=== PATIENT | female | born 1990 | race Caucasian/White ===

== ENCOUNTER → 2017-08-11 18:45 | Observation (INO) ==
--- NOTE | 2017-08-11 18:28 | OB/GYN Progress Note ---
Date of Encounter: 08/12/17 Time of Encounter: 18:24 - Assessment and Plan (1) 38 weeks gestation of Status: Chronic Patient monitored on Rodessa and EFM for 2 hours. Cat 1 tracings, HR 150's Cervical Exam: Monday Today at 1600: 4/80, posterior cervix Today at 1800: 4/80, posterior cervix No change in cervical exam with reassuring NST. Patient discharged home and will return if needed for eval with increased contractions, leaking fluid, etc. Subjective - Subjective Principal diagnosis: labor eval Interval history: Ms. Tarango is a 27 y/o female at 38 5/7 weeks gestation who presents to L&D for labor eval. She states that she has been feeling contractions irregularly since monday. She was seen in the office Monday and was . She states that her contractions have increased in regularity today. They were about 10 minutes apart and then 3-4 minutes apart when she was exercising. She states that they are currently about every 5 minutes. She notes no vaginal bleeding, fluid leak or discharge. She has positive movement. She states that her current has not been complicated and neither were her 2 prior pregnancies. She did have one miscarriage. She also notes that with her last delivery she had retained placenta and required an emergent D&C. Denies f/c, GRIFFIN, dizziness, cp, sob, n/v/d, rashes, weakness. Antepartum ROS: movement normal, contractions, no loss of fluid, no vaginal bleeding Objective - Vital Signs Vital Signs: Intake and Output 08/11/17 08/11/17 08/11/17 07:59 15:59 23:59 Other: Weight 87 kg Patient Weight 08/11/17 23:59 Weight 87 kg - Exam FHR: auscultation normal, category 1 Auscultation: bilateral: normal Abdomen: Present: normal appearance, soft, gravid. Absent: tenderness Uterus: Present: normal, firm Cervical dilation: 4 Cervix effacement: 80 Comments: cervix posterior - Allied health notes Allied health notes reviewed: nursing
[~2017-08-11 18:45] MED LIST: FLUARIX QUAD 2017-18 36MOS UP/PF 0.5 ML SYRINGE IM ONE
== END | disposition home or self-care (01) ==
LOC: 1NENULAB
PROVIDERS: ADMIT Obstetrics & Gynecology; ATTEND Obstetrics & Gynecology

== ENCOUNTER 2017-08-12 02:28 | Inpatient (IN) ==
--- NOTE | 2017-08-12 01:12 | OB/GYN History & Physical ---
Date of Encounter: 08/12/17 Time of Encounter: 01:08 Assessment and Plan (1) 39 weeks gestation of Current visit: Yes Status: Acute (2) Uterine contractions during Current visit: Yes Status: Acute Discussed case with Dr. Smith, who states dating should be done based on first trimester ultrasound showing 10/20. Patient has been having contractions without cervical change however given the patient's distance from the hospital of an hour away and a history of retained placenta with immediate hemorrhage decision made to proceed with induction of labor. Admit to labor and delivery Nubain and epidural as desired GBS negative Pitocin induction per policy Anticipate History of Present Illness Chief complaint: contractions HPI: Ms. Tarango is a 27 year old female at 39+1 weeks' gestation. Initial review of records showed NANCY of 10 however patient states that she was always told her NANCY was 10/20. upon review of initial suppress menses visit as an NANCY was calculated based on first trimester ultrasound which showed NANCY of of 10/20. Patient complains of contractions consistently since this afternoon, was discharged to home but patient returned with stronger contractions this evening. Reports good movement, denies vaginal bleeding or leaking of fluid. Uncomplicated course, however last did have a D&C due to retained placenta and hemorrhage. Labs: O+, rubella immune GBS negative, all other serologies negative Past Med Surg Social Fam HX - Past Medical History Medical history: no medical history Psychiatric history: no psych history - Social History Smoking Status: Never smoker Alcohol use: none Drug use: none - Family History Mother Adopted: No Living Status: Still Living Hx Family Cardiac Disorders: Yes (HTn) Hx Family Respiratory Disorders: No Hx Family Cancer: No Hx Family GI Disorders: No Hx Family Endocrine Disorder: No Hx Family Neuromuscular Disorders: No Hx Family Neurologic Disorders: No Hx Family HEENT Disorders: No Hx Family Autoimmune Disorders: No Obstetrical History - Pregnancies : 4 Para: 2 Term: 2 : 0 Ab's: 1 Livin Medications and Allergies Vit Calc,Iron,Folic [ Vitamins] 1 tab PO DAILY 08/11/17 [ History] 3 Allergy/AdvReac Type Severity Reaction Status Date / Time No Known Allergies Allergy Verified 08/11/17 22:22 Exam - Constitutional Constitutional: well developed, well nourished, no acute distress, average body habitus - Neck Neck exam: full ROM - Lungs Respiratory exam: CTAB - Cardiovascular Cardiovascular exam: RRR - Abdomen Abdomen: Present: bowel sounds normal, gravid, non tender - Vagina Vagina: Present: normal moisture - Cervix Dilation: 4 Effacement: 80 Station: -2 - Uterus Uterus exam: Present: normal size, normal contour Results All other labs normal. - VTE Reasons for not Prescribing Prophylaxis: Treatment not Indicated - Low risk for VTE
[2017-08-12 02:14] LABS: Basophils % 0.2 %; Eosinophils # 0.1 K/mcL (0.0-0.6); Eosinophils % 0.6 %; Hemoglobin 12.3 g/dL (11.5-15.4); Immature Granulocytes % 0.9 % (0-4); Immature Platelets 5.2 % (1.1-6.1); Lymphocytes # 2.5 K/mcL (0.6-4.6); Lymphocytes % 20.1 %; Mean Corpuscular HGB Conc 34.2 g/dL (31.6-35.5); Mean Corpuscular Hemoglobin 31.5 pg (28.0-33.3); Mean Corpuscular Volume 92.3 fL (83.0-100.0); Mean Platelet Volume 10.6 fL (9.4-12.4); Monocytes % 7.8 %; Neutrophils # 8.7 K/mcL (1.6-8.9); Platelet Count 231 K/mcL (140-400); Red Cell Distribution Width 13.3 % (11.5-14.5); Segmented Neutrophils % 70.4 %
[~2017-08-12 02:28] MED LIST changes: +*HR* Nalbuphine 20 MG/ML AMPUL IVP PRN; -FLUARIX QUAD 2017-18 36MOS UP/PF 0.5 ML SYRINGE IM ONE; +Famotidine 20 MG/2 ML VIAL IVP PRN; +Naloxone 0.4 MG/ML INJ IVP PRN; +Ondansetron 4 MG/2 ML VIAL IVP PRN; +Oxytocin 20 units/ LR 1000 mL 20 UNIT/1,000 ML BAG IVC SCH; +Ringers Solution, Lactated 1,000 ML IVC SCH
--- NOTE | 2017-08-12 09:10 | OB Labor Progress Note ---
Date of Encounter: 08/12/17 Time of Encounter: 09:08 Labor Progress Note - Subjective Subjective: Pt states she continue to feel contractions, but pain is manageable. - Cervix Cervix: 5/90-/0 - Heart Tones Heart Tones: 120/moderate/+accles/-decels - [facility]: 4-8 - Interventions Interventions: Pit turned off at this time due to staffing issues. Will restart when staffing allows - Plan Plan: Restart pitocin as soon as staffing allows. Anticipate .
[2017-08-12] MEDS ORDERED: Ibuprofen 600 MG TABLET PO ONE (14:04)
--- NOTE | 2017-08-12 14:28 | OB/GYN Procedure Note ---
Delivery - Delivery Date: 08/12/17 Provider: Tatyana Ivy Intrapartum events: oligohydramnios Delivery induction: oxytocin Delivery augmentation: rupture of membranes Delivery monitor: external FHT, external uterine Anesthesia: local Estimated Blood Loss: 150 - (s) A Delivery Date: 08/12/17 Delivery Time: 13:48 Presentation: vertex Position: OA Route of delivery: Gender: Male Viability: Viable at 1 minute: 8 at 5 mins: 9 Shoulder Dystocia: not encountered Specimens collected: cord blood Placenta: spontaneous Cord: 3 umbilical vessels - Repair Episiotomy: none Laceration Description: Perineal - 2nd Degree - Complications Delivery complications: none Delivery comments: Induction of labor for history of PPH and lives an hour from hospital. Pitocin inducition progressed to complete. Spontaneous maternal bearing down efforts to of liveborn male, Vertex delivered OA, shoulders and body easily followed, no nuchal cord or shoulder dystocia encountered. placed on maternal abdomen for stimulation. APGARS 8/9. Pitocin started and placenta delivered spontaneously with gentle cord traction. Fundus massaged to firm. Dr. Franco present to assist with placenta delivery. Second degree laceration repaired in the usual fashion. EBL 150. Mother and left bonding in skin to skin and stable. - Disposition Mom disposition: stable in LDR [place] disposition: stable in LDR - Comments Comments: I attended this delivery with above CNM due to patient's history of retained placenta and need for D&C and hemorrhage. The placenta did not immediately release so I assisted with fundal massage and placental retraction. Placenta eventually did spontaneously release followed by 150 mL blood clot. Placenta was inspected and appeared to be intact. There was minimal bleeding following the delivery of the placenta. Usha Franco M.D.
[2017-08-12] MEDS ORDERED: Oxytocin 20 units/ LR 1000 mL 20 UNIT/1,000 ML BAG IVC SCH (17:58)
[2017-08-12] MEDS ORDERED: Acetaminophen 325 MG TABLET PO PRN (17:58)
[2017-08-12] MEDS ORDERED: Rho Immune Globulin 1,500 UNIT SYRINGE IM PRN (17:58)
[2017-08-12] MEDS ORDERED: Measles/Mumps/Rubella Vacc 0.5 ML VIAL SQ PRN (17:58)
[2017-08-12] MEDS: Ibuprofen 600 MG TABLET PO SCH (23:45)
[2017-08-13 06:34] LABS: Basophils % 0.3 %; Eosinophils % 0.3 %; Immature Granulocytes % 0.8 % (0-4); Lymphocytes # 2.8 K/mcL (0.6-4.6); Lymphocytes % 18.5 %; Mean Corpuscular HGB Conc 34.2 g/dL (31.6-35.5); Mean Corpuscular Hemoglobin 31.9 pg (28.0-33.3); Mean Corpuscular Volume 93.4 fL (83.0-100.0); Mean Platelet Volume 10.6 fL (9.4-12.4); Monocytes # 1.1 K/mcL (0.0-1.3); Monocytes % 7.4 %; Neutrophils # 10.8 K/mcL (1.6-8.9); Platelet Count 191 K/mcL (140-400); Red Blood Count 3.32 M/mcL (3.82-4.97); Red Cell Distribution Width 13.4 % (11.5-14.5); Segmented Neutrophils % 72.7 %
[2017-08-13 06:37] LABS: Hemoglobin 10.6 g/dL (11.5-15.4)
[2017-08-13 08:01] VITALS: BP 108/60
[2017-08-13] MEDS ORDERED: Prenatal Vit/FA 1 EACH TABLET PO SCH (09:00)
--- NOTE | 2017-08-13 09:41 | Discharge Summary ---
Date of Encounter: 08/13/17 Time of Encounter: 09:36 - Discharge Diagnosis (1) 39 weeks gestation of Priority: Primary Status: Acute (2) Uterine contractions during Priority: Primary Status: Acute (3) Vaginal delivery Priority: Primary Status: Acute Comments: Pt meeting all milestones. Pain well managed on po pain medication, bottle feeding, desires discharge - Discharge Medications Prescriptions: Ibuprofen [Motrin] 600 mg PO Q6HR #60 tablet Docusate [Colace] 100 mg PO BID #60 capsule Home Medications: Vit Calc,Iron,Folic [ Vitamins] 1 tab PO DAILY 08/11/17 [ History] Acetaminophen [Tylenol] 650 mg PO Q6HR PRN tablet 08/13/17 [Rx] Docusate [Colace] 100 mg PO BID #60 capsule 08/13/17 [Rx] Ibuprofen [Motrin] 600 mg PO Q6HR #60 tablet 08/13/17 [Rx] Vit/FA 1 each PO DAILY tablet 08/13/17 [Rx] Allergies/Adverse Reactions: 3 Allergy/AdvReac Type Severity Reaction Status Date / Time No Known Allergies Allergy Verified 08/11/17 22:22 Data Procedures and tests throughout hospitalization: Laboratory Tests 08/12/17 08/13/17 01:43 05:17 WBC 12.4 H 14.9 H RBC 3.90 3.32 L Hgb 12.3 10.6 L D Hct 36.0 31.0 L MCV 92.3 93.4 MCH 31.5 31.9 MCHC 34.2 34.2 RDW 13.3 13.4 Plt Count 231 191 MPV 10.6 10.6 Immature Gran % 0.9 0.8 Seg Neutrophils % 70.4 72.7 Lymphocytes % 20.1 18.5 Monocytes % 7.8 7.4 Eosinophils % 0.6 0.3 Basophils % 0.2 0.3 Neutrophils # 8.7 10.8 H Lymphocytes # 2.5 2.8 Monocytes # 1.0 1.1 Eosinophils # 0.1 0.0 Basophils # 0.0 0.0 Immature Plt Fraction 5.2 Labs on day of discharge: Labs from last 24 hours 08/13/17 05:17 WBC 14.9 H RBC 3.32 L Hgb 10.6 L D Hct 31.0 L MCV 93.4 MCH 31.9 MCHC 34.2 RDW 13.4 Plt Count 191 MPV 10.6 Immature Gran % 0.8 Seg Neutrophils % 72.7 Lymphocytes % 18.5 Monocytes % 7.4 Eosinophils % 0.3 Basophils % 0.3 Neutrophils # 10.8 H Lymphocytes # 2.8 Monocytes # 1.1 Eosinophils # 0.0 Basophils # 0.0 Date of admission: 08/12/17 02:29 Consults: 08/12/17 17:58 Consult to Plodder Operator [CONS] Routine Comment: Vaginal delivery, consult needed Discharging clinician: Tatyana Ivy Anticipated date of discharge: 08/13/17 - Patient Status Disposition: Home, Self-Care Condition: Good Functional capacity at discharge: independent ambulation - Discharge Instructions Instructions: Ibuprofen (By mouth), Laxative, Stool Softeners (By mouth) Additional Instructions: LABOR AND DELIVERY DISCHARGE INSTRUCTIONS Signs and Symptoms to be Reported to your Doctor Immediately: * Sudden gush, continuous or intermittent lead of fluid from vagina (note the time of gush and color of fluid) * Onset of bright red vaginal bleeding with or without pain (if you had a vaginal exam during this visit you may notice some dark red spotting. This is normal.) * Contractions that are 5 minutes apart (from the beginning of one contraction to the beginning of the next) and last 45-60 seonds; contractions that you can no longer walk, talk or laugh through. * A change in the baby's activity. This could be an increase or decrease in activity. * Severe headache which does not go away with tylenol. * Sudden swelling in the face, hands, arms and/or legs. * Upper abdominal pain - sometimes associated with heartburn or nausea and is not relieved by Maalox, Mylanta or Tums. * Kick Counts __ One hour after a meal, lay down on one side in a quiet place. Count the number of time the baby moves during an hour. If less than 6 movements, notify your physician Diet: *Force fluids, 8 to 10 tall glasses of fluid per day - may include popsicles and jello *Limit caffeine - this includes chocolate, coffee, tea, any soft drink containing such as all dudley, Abhijeet Yellow and Mountain Dew - Diet and Activity Activity: resume usual activities as tolerated Diet: regular diet Hospital Course Reason for admission: induction of labor, IUP at term Delivery: Episiotomy: none Laceration: 2nd degree Other procedures: none complications: none Discharge diagnosis: IUP at term delivered baby: male Hospital course: Delivery - Delivery Date: 08/12/17 Provider: Tatyana Ivy Intrapartum events: oligohydramnios Delivery induction: oxytocin Delivery augmentation: rupture of membranes Delivery monitor: external FHT, external uterine Anesthesia: local Estimated Blood Loss: 150 - (s) Infant A Infant Delivery Date: 08/12/17 Infant Delivery Time: 13:48 Presentation: vertex Position: OA Route of delivery: Gender: Male Viability: Viable at 1 minute: 8 at 5 mins: 9 Shoulder Dystocia: not encountered Specimens collected: cord blood Placenta: spontaneous Cord: 3 umbilical vessels - Repair Episiotomy: none Laceration Description: Perineal - 2nd Degree - Complications Delivery complications: none Delivery comments: Induction of labor for history of PPH and lives an hour from hospital. Pitocin inducition progressed to complete. Spontaneous maternal bearing down efforts to of liveborn male, Vertex delivered OA, shoulders and body easily followed, no nuchal cord or shoulder dystocia encountered. Infant placed on maternal abdomen for stimulation. APGARS 8/9. Pitocin started and placenta delivered spontaneously with gentle cord traction. Fundus massaged to firm. Dr. Franco present to assist with placenta delivery. Second degree laceration repaired in the usual fashion. EBL 150. Mother and left bonding in skin to skin and stable. - Disposition Mom disposition: stable in LDR disposition: stable in LDR - Comments Comments: I attended this delivery with above CNM due to patient's history of retained placenta and need for D&C and hemorrhage. The placenta did not immediately release so I assisted with fundal massage and placental retraction. Placenta eventually did spontaneously release followed by 150 mL blood clot. Placenta was inspected and appeared to be intact. There was minimal bleeding following the delivery of the placenta. Usha Franco M.D. Time Attestation: Total time spent providing and/or coordinating discharge services: Time Spent: Less than 30 minutes Exam - Constitutional Vitals: Temp Pulse Resp BP Pulse Ox 98.3 F 60 12 108/60 97 08/13/17 08:00 08/13/17 08:00 08/13/17 08:00 08/13/17 08:00 08/13/17 08:00 General appearance IM: A&O X 3 - Respiratory Respiratory exam: Present: CTAB - Cardiovascular Cardiovascular exam IM: Present: RRR - GI/Abdominal GI/Abdominal exam IM: normal bowel sounds, soft - Uterine Tone: Firm Uterus Position: At Umbilicus - Extremities Exam Extremities exam IM: Present: normal capillary refill, normal inspection - Neurological Exam Neurological exam: normal gait, oriented X3 - Psychiatric Additional comments: Reports good mood.
[2017-08-13] MEDS: Ibuprofen 600 MG TABLET PO SCH (10:42)
[2017-08-13] MEDS ORDERED: FLUARIX QUAD 2017-18 36MOS UP/PF 0.5 ML SYRINGE IM ONE (14:11)
[2017-08-13] MEDS ORDERED: Benzocaine/Menthol 56 GM AEROSOL SPRAY TP PRN (14:44)
== END 2017-08-13 16:45 | disposition home or self-care (01) | DRG 541 ==
LOC: 1NENULAB → 1NENUOBS 17:08
PROVIDERS: ADMIT Obstetrics & Gynecology; ATTEND Obstetrics & Gynecology